=== PATIENT | female | born 1950 | race Caucasian/White ===

== ENCOUNTER → 2020-07-27 | Outpatient (CLI) | payer MEDICARE | LOC: WCC 10:54 | DX: E11.628 Type 2 diabetes mellitus with other skin complications (principal); B37.3 Candidiasis of vulva and vagina; T81.31XD Disruption of external operation (surgical) wound, not elsewhere classified, subsequent encounter; E66.01 Morbid (severe) obesity due to excess calories; Z90.79 Acquired absence of other genital organ(s) | CPT/HCPCS: G0463 ==